=== PATIENT | female | born 1960 | race Caucasian/White ===

== ENCOUNTER 2017-11-22 09:28 | Day surgery (SDC) | payer MEDICARE, MEDICAID ==
[2017-11-20 11:36] LABS: BASOPHILS % (AUTO) 0.3 % (0-1); EOSINOPHILS # (AUTO) 0.2 X10'3 (0-0.9); EOSINOPHILS % (AUTO) 3.1 % (0-6); LYMPHOCYTES # (AUTO) 1.5 X10'3 (1.1-4.8); LYMPHOCYTES % (AUTO) 21.1 % (21-51); MEAN CORPUSCULAR HEMOGLOBIN 18.2 PG (27.0-31.0); MEAN CORPUSCULAR HGB CONC 30.1 % (33.0-36.5); MEAN CORPUSCULAR VOLUME 60.3 FL (78-98); MEAN PLATELET VOLUME 7.4 FL (7.4-10.4); MONOCYTES # (AUTO) 0.5 X10'3 (0-0.9); MONOCYTES % (AUTO) 6.4 % (2-12); NEUTROPHILS # (AUTO) 4.9 X10'3 (1.8-7.7); NEUTROPHILS % (AUTO) 69.1 % (42-75); PRE OP HEMATOCRIT 33.1 % (35.0-45.0); PRE OP PLATELET COUNT 464 X10'3 (140-440); RED BLOOD COUNT 5.49 X10'6 (4.20-5.60); RED CELL DISTRIBUTION WIDTH 20.4 % (11.5-14.5)
[2017-11-20 11:46] LABS: PRE OP INR 0.9 INR; PRE OP PROTIME 9.6 SECONDS (9.0-12.0)
[2017-11-20 11:50] LABS: ALBUMIN 3.6 G/DL (3.4-5.0); ALKALINE PHOSPHATASE 117 IU/L (46-116); BLOOD UREA NITROGEN 23 MG/DL (7-18); BUN/CREATININE RATIO 32.4 (6.6-38.0); CALCIUM 10.3 MG/DL (8.5-10.1); CHLORIDE 104 MMOL/L (99-107); CREATININE 0.71 MG/DL (0.40-0.90); PRE OP ALT 21 U/L (30-65); PRE OP ANION GAP 6 (8-16); PRE OP AST 26 U/L (10-37); PRE OP BILIRUB, TOTAL 0.2 MG/DL (0.0-1.0); PRE OP GLUCOSE 102 MG/DL (70-104); PRE OP POTASSIUM 4.7 MMOL/L (3.4-5.1); PRE OP SODIUM 139 MMOL/L (135-145); TOTAL CARBON DIOXIDE 28.6 MMOL/L (24-32); TOTAL PROTEIN 7.1 G/DL (6.4-8.2); eGFR 85 ML/MIN
[2017-11-20 12:01] LABS: ANISOCYTOSIS 2+; HYPOCHROMASIA 1+; MICROCYTOSIS 2+; PLATELET ESTIMATE INCREASED; POLYCHROMASIA FEW; SCHISTOCYTES FEW
[2017-11-20 12:02] LABS: ELLIPTOCYTES FEW
[2017-11-22] VITALS (11 sets, daily range): BP systolic 120–147; BP diastolic 54–91
[~2017-11-22] VITALS: Ht 162.6 cm; Wt 70.7 kg
[~2017-11-22 09:28] MED LIST: NAPR-1154 PO; SULF1TAB48 PO; albuterol 2.5 MG/3 ML nebule NEB ONE; ceFAZolin 1,000 MG/D5W 50ML IVPB Premixed bag IV ONE; famotidine 20mg tablet PO ONE; ringers solution, lacted 1,000 ML IV SCH
[2017-11-22] MEDS ORDERED: BUPIVAcaine/PF 2.5mg/ml (0.25%) 10ml vial ONE (10:55)
[2017-11-22] MEDS ORDERED: ROPIVAcaine 0.5% (5mg/ml) 30ml vial ONE ×2 (11:43→11:44)
[2017-11-22] MEDS ORDERED: cloNIDine hcl/PF 100mcg/ml inj ONE (11:43)
[2017-11-22] MEDS ORDERED: ringers solution, lacted 1,000 ML IV SCH (11:56)
[2017-11-22] MEDS ORDERED: midazolam 2 mg/2 ml injection ONE (11:59)
[2017-11-22] MEDS ORDERED: fentaNYL/PF 50MCG/1 ML 2ML syringe ONE (11:59)
[2017-11-22] MEDS ORDERED: propofol inj 20 ML IV ONE (11:59)
[2017-11-22] MEDS ORDERED: LIDOcaine 2% (20mg/ml) 5ml vial ONE (11:59)
[2017-11-22] MEDS ORDERED: dexamethasone sod phosphate 4mg/ml inj. ONE (11:59)
[2017-11-22] MEDS ORDERED: ondansetron/PF 4mg/2ml inj IV PRN (12:00)
[2017-11-22] MEDS ORDERED: fentaNYL/PF 50MCG/1 ML 2ML syringe IV PRN ×2 (12:00)
[2017-11-22] MEDS ORDERED: morphine 4 MG/ML inj SYRINge IV PRN ×2 (12:00)
[2017-11-22] MEDS ORDERED: hydrALAZINE 20mg/ml inj. IV PRN (12:00)
[2017-11-22] MEDS ORDERED: sevoflurane 250ml liquid IH ONE (12:04)
[2017-11-22] MEDS ORDERED: ondansetron/PF 4mg/2ml inj ONE (12:41)
== END 2017-11-22 15:05 | disposition home or self-care (01) ==
LOC: PAS 09:28
PROVIDERS: ATTEND Orthopaedic Surgery Hand Surgery
DX: S52.572A Other intraarticular fracture of lower end of left radius, initial encounter for closed fracture (principal); G89.18 Other acute postprocedural pain; F17.210 Nicotine dependence, cigarettes, uncomplicated; F32.89 Other specified depressive episodes; F41.8 Other specified anxiety disorders; Z72.89 Other problems related to lifestyle; Z86.14 Personal history of Methicillin resistant Staphylococcus aureus infection; Z90.49 Acquired absence of other specified parts of digestive tract; Z98.84 Bariatric surgery status; Z86.2 Personal history of diseases of the blood and blood-forming organs and certain disorders involving the immune mechanism; Z79.2 Long term (current) use of antibiotics; Z98.890 Other specified postprocedural states; Z79.899 Other long term (current) drug therapy; V89.9XXA Person injured in unspecified vehicle accident, initial encounter; Y93.89 Activity, other specified; Y92.89 Other specified places as the place of occurrence of the external cause; Y99.8 Other external cause status
CPT/HCPCS: 25609; 36415; 64415; 64450; 80053; 85025; 85610; 85730; 93005; A4565; A6449; C1713; J0690; J0735; J1100; J2001; J2250; J2405; J2704; J2795; J3010; J7120; A7000; J3490